=== PATIENT | female | born 1990 | race African-American/Black ===

== ENCOUNTER 2017-05-17 16:50 | Emergency (ER) | payer OTHER ==
[~2017-05-17] VITALS: Ht 154.9 cm; Wt 138.6 kg
[~2017-05-17 16:50] MED LIST: ALBU18HF INH; ALBU2.5V4 INHALATION; METO10TA3 PO; OMEP20CA11 PO; PREN-100 PO; PROM25TA14 PO
[2017-05-17 16:54] VITALS: BP 152/101; PULSE 81; RESP 16; O2SAT 98
[2017-05-17 19:50] LABS: BASOPHILS % (AUTO) 0.3 % (0-3); EOSINOPHILS % (AUTO) 1.9 % (0-5); MONOCYTES % (AUTO) 8.4 % (4-12); Mean Corpuscular Hemoglobin 30.6 pg (27.0-35.0); Mean Corpuscular Volume 94.7 fL (81-100); NEUTROPHILS % (AUTO) 51.3 % (40-74); Platelet Count 246 bil/L (150-400)
[2017-05-17 20:12] VITALS: BP 138/70; PULSE 84; RESP 18; O2SAT 100
[2017-05-17 20:34] LABS: APPEARANCE,URINE CLEAR (CLEAR,HAZY); COLOR,URINE YELLOW (YELLOW); OCCULT BLOOD,URINE NEGATIVE (NEGATIVE); PH,URINE 7.5 (5.0-8.0); UROBILINOGEN,URINE NORMAL (NORMAL)
--- NOTE | 2017-05-17 21:32 | ED.REPORT ---
HPI-General Illness Date of Service May 17, 2017 ED Provider: Tom Monson MD Patient is a 27 year old female with a history of bronchitis and asthma who presents to the ED due to an episode of confusion, where she woke up at work and was uncertain of how she got there. Patient reports having a headache and diarrhea but attributes this to her recent bronchitis and antibiotic treatment. She denies nausea, vomiting, one sided numbness, weakness, slurred speech, double vision, vision changes, cough or shortness of breath. The patient reports that she wasn't able to take her normal morning medications, (Ritalin for her ADHD, Prednisone, Celexa, Omeprazole, Tessalon pearls and an antibiotic for her current bronchitis), when normally scheduled, so she took them when she went home for lunch. She states that she does not remember going back to work and her boss told her that she was nodding off while he was trying to talk to her. The patient reports feeling like her "brain was in a fog" because she was unable to remember how to do simple work tasks that she normally performs. She has had reportedly had two episodes of seizure like activity in the past where she has fainted but has not had an episode for the past many years. Nursing Notes Stated Complaint: BLACKING OUT, CONFUSED, NOT ABLE TO FOCUS Chief Complaint: General Complaint Nursing Notes Reviewed: Yes Allergies: Coded Allergies: morphine (Verified Allergy, Mild, itchy, 05/17/17) iron (Verified Allergy, Unknown, 08/16/15) Scheduled Omeprazole (Omeprazole) 20 Mg Capsule. 20 MG PO DAILY Vits #90/Iron Fum/FA ( Formula Tablet) 1 Each Tablet 1 EACH PO DAILY Scheduled PRN Albuterol Neb Soln (Albuterol Neb Soln) 2.5 Mg/3 Ml Vial.neb 2.5 MG INHALATION Q4H PRN PRN For Shortness of Breath Albuterol Sulfate (Ventolin HFA Inhaler) 200 Puff/18 Gm Inhaler 2 PUFF INH Q4 PRN PRN For Wheezing Metoclopramide (Metoclopramide) 10 Mg Tablet 10 MG PO Q6H PRN PRN For Nausea Promethazine (Promethazine) 25 Mg Tablet 25 MG PO Q6H PRN PRN For Nausea General Time Seen by MD: 21:19 Chief Complaint Other (confusion) Hx Obtained From: Patient Arrived By: Walk-in Sudden in Onset?: Yes Onset Occurred: 5 - 8 hours ago Symptom Duration: 1 - 4 hours Severity: Current: No pain currently Associated with: Denies: Cough, Fever, Speech abnormal, Vomiting, Weakness Recent Healthcare: No recent hospitalization, Recent doctor visit Similar Sx Previous: Yes Past Medical History Past Medical History -induced hypertension Asthma GERD Past Surgical History Cholecystectomy x3 Smoking History Never Smoker Social History Alcohol Use: Denies alcohol use Ambulatory Status Independent Review of Systems Full Review of Systems Constitutional: Denies: Chills, Fever Respiratory: Denies: Non-productive cough, Shortness of breath GI: Reports: Diarrhea, Denies: Nausea, Vomiting Skin: Denies Itching, Denies Rash Neurologic: Reports: Confusion, Headache, Denies: Numbness, Slurred speech, Vision change, Weakness Complete sys rev & neg: except as marked. Physical Exam Vital Signs Vital Signs Date Time Temp Pulse Resp B/P Pulse Ox O2 Delivery O2 Flow Rate FiO2 05/17/17 23:56 36.9 81 18 142/74 99 Room Air 05/17/17 22:22 81 18 142/74 99 Room Air 05/17/17 20:12 84 18 138/70 100 Room Air 05/17/17 16:54 36.9 81 16 152/101 98 Room Air Initial VS: Reviewed General/Constitutional: Awake, Alert, No acute distress Appearance / Presentation: Positive: Obese, morbidly Head / Eyes: Atraumatic, Normocephalic, PERRL, EOMI Respiratory / Chest: Atraumatic, Breath sounds NL, Breath sounds = bilat, No respiratory distress Cardiovascular: Heart rate NL, Regular rhythm, Heart sounds NL Abdomen: Atraumatic, Soft, Non-tender Upper Extremities Upper Extremity / MS: Atraumatic, Inspection NL, Full range of motion Lower Extremity / Pelvis / MS: Atraumatic, Inspection NL, Full range of motion Skin: Atraumatic, Color NL, No rash, Warm, Dry Neurologic: Oriented X3, Speech NL, No motor deficits, No sensory deficits, CN II - XII intact, Reflexes equal bilat, Cerebellar NL Psychiatric: Affect NL, Mood NL Interpretation & Diagnostics Lab Results Interpretation Result Diagram: 05/17/17 1943 05/17/17 194 Test 05/17/17 18:26 05/17/17 19:43 05/17/17 19:47 05/17/17 20:20 Hold Urine Received (Received) White Blood Count 11.9th/mm3 (3.8-10.1) Red Blood Count 4.12mil/mm3 (3.90-5.20) Hemoglobin 12.6g/dL (12.0-15.6) Hematocrit 39.0% (35.0-46.0) Mean Corpuscular Volume 94.7fL (81-100) Mean Corpuscular Hemoglobin 30.6pg (27.0-35.0) Mean Corpuscular Hemoglobin Concent 32.3% (32.0-37.0) Red Cell Distribution Width 12.7% (12.3-15.4) Platelet Count 246bil/L (150-400) Neutrophils (%) (Auto) 51.3% (40-74) Lymphocytes (%) (Auto) 37.6% (14-46) Monocytes (%) (Auto) 8.4% (4-12) Eosinophils (%) (Auto) 1.9% (0-5) Basophils (%) (Auto) 0.3% (0-3) Sodium Level 138mEq/L (134-144) Potassium Level 4.3mEq/L (3.5-5.2) Chloride Level 101mEq/L (97-108) Carbon Dioxide Level 23mmol/L (18-29) Blood Urea Nitrogen 14mg/dL (6-20) Creatinine 0.60mg/dL (0.57-1.00) Estimat Glomerular Filtration Rate 152mL/min (>59) Glucose Level 101mg/dL (60-99) Calcium Level 9.1mg/dL (8.5-10.1) Total Bilirubin 0.2mg/dL (0.0-1.2) Aspartate Amino Transf (AST/SGOT) 56U/L (0-50) Alanine Aminotransferase (ALT/SGPT) 72U/L (0-32) Alkaline Phosphatase 76U/L (25-150) Total Protein 6.7g/dL (6.4-8.4) Albumin 3.7g/dL (3.4-5.0) Hold [place] Top Tube Received (Received) Urine Color Yellow (YELLOW) Urine Appearance Clear (CLEAR,HAZY) Urine pH 7.5 (5.0-8.0) Urine Specific [place] 1.015 (1.003-1.035) Urine Protein Negativemg/dL (NEG,TRACE) Urine Glucose (UA) Negativemg/dL (NEGATIVE) Urine Ketones Negativemg/dL (NEGATIVE) Urine Occult Blood Negative (NEGATIVE) Urine Nitrite Negative (NEGATIVE) Urine Bilirubin Negative (NEGATIVE) Urine Urobilinogen Normalmg/dL (NORMAL) Urine Leukocyte Esterase Negative (NEGATIVE) Urine RBC 0-2/hpf (0-2) Urine WBC 0-5/hpf (0-5) Urine Epithelial Cells Moderate/hpf (NONE-MOD) Urine Crystals None seen (NONE SEEN) Urine Bacteria Few/hpf (NONE-FEW) Urine Hyaline Casts None/lpf (NONE) Urine Granular Casts None seen (NONE SEEN) Urine Waxy Casts None seen (NONE SEEN) Urine Red Blood Cell Casts None seen (NONE SEEN) Urine White Blood Cell Casts None seen (NONE SEEN) Urine Mucus None seen (None Seen) Urine Trichomonas None seen (NONE SEEN) Urine Yeast None (NONE SEEN) Urinalysis Comment None Urine Culture Reflexed Not indicated ECG Interpretation Time: 19:37 Interpreted by: ED physician Normal ECG Interpretation: Normal rate (80), Normal sinus rhythm CT Head Interpretation IMPRESSION: No evidence of hemorrhage, mass, or acute infarct. at 2253 Study: Head CT no contrast Interpretation / Wet Read by: Interpret - Radiologist Re-Eval/Medical Decision Med Decision/Clinical Course 27-year-old female presents after a prolonged period of confusion and complete amnesia for events for at least several hours. Her mother arrived somewhat later and reports she has had lesser but similar episodes multiple times over the past ten years. She had an evaluation ten years ago for a more prolonged similar episode, with no result. My best estimation is that this was a seizure and a postictal event. This may be purely psychiatric fugue state or a drug-induced confusional state, but the episodic nature and somewhat repetitive nature strongly suggests seizure. She is referred to her PCP, as well as to neurology for MRI seizure protocol, EEG, and further evaluation. No indication for antiseizure medicines at this point, until her evaluation can be completed. Discussed all this with her and her mother at length. She is aware she is a non-driving status until cleared by neurology. Time of Eval: 22:21 Re-Evaluation/Progress Note: Discussed plans for a CT Time of Eval: 23:12 Re-Evaluation/Progress Note: Discussed CT results and plan for discharge. Patient understands and agrees to the plan. All questions were addressed. Counseled Regarding: Diagnosis, Lab results, Need for follow-up, When/why to return to ED Discharge & Departure Primary Impression: Seizure Additional Impressions: Post-ictal state Acute confusional state Disposition: Home Discharge Condition All VS Reviewed: Yes Condition: Stable Additional Instructions: Call your doctor tomorrow morning for follow-up. You will need an MRI seizure protocol with contrast scheduled at an open MRI facility. You will need an electroencephalogram, which can be scheduled through your doctor. You will need a referral to neurology, also to be arranged by your doctor. At this point, we do not have enough information to make a rational decision about your need or non-need for seizure medicine. For the moment, it is necessary that you do not drive a car until you are cleared. You will be putting your self and others at risk if you should have a loss of consciousness while driving. Return if you have any recurrent symptoms or any other new symptoms of concern Referrals: Dedrick Quinones DO (PCP) Abida Attestation Portions of this note were transcribed by Alma Pruitt. I, Dr. Monson personally performed the history, physical exam and medical decision-making; I reviewed and confirmed the accuracy of the information in the transcribed note. Signed by: Abida Winn, 05/17/17 and 2220 copies to: Dedrick Quinones Christopher W MD May 17, 2017 21:32 Marita Pruitt May 17, 2017 21:34
[2017-05-17 22:22] VITALS: BP 142/74; PULSE 81; RESP 18; O2SAT 99
[2017-05-17 23:56] VITALS: BP 142/74; PULSE 81; RESP 18; O2SAT 99
--- NOTE | 2017-05-18 10:32 | DRSVH ---
PROCEDURE: CT BRAIN WITHOUT CONTRAST ([id number]) INDICATIONS: SEIZURE TECHNIQUE: Noncontrast 4.5 mm thick angled axial sections acquired from the foramen magnum to the vertex, with c oronal reformats. COMPARISON: [facility], CT, BRAIN W/O CONTRAST, 05/25/2014, 12:49. FINDINGS: Image quality: Excellent. CSF spaces: Basal cisterns are patent. No extra-axial fluid collections. Ventricles are normal in size and shape. Brain: No midline shift. No intracranial masses or hemorrhage. Rubi-white matter interface is norm al. Skull and face: Calvarium and visualized facial bones are intact, without suspicious lesions. Sinuses: Visualized sinuses and mastoids are clear. IMPRESSION: 1. No acute intracranial process. Dictated by: Ariadna Gallardo M.D. on 05/18/2017 at 10:29 Approved by: Ariadna Gallardo M.D. on 05/18/2017 at 10:30
== END 2017-05-17 23:57 | disposition home or self-care (01) ==
LOC: SED 16:50
DX: R41.0 Disorientation, unspecified (principal); R56.9 Unspecified convulsions; R19.7 Diarrhea, unspecified; R51 Headache; J45.909 Unspecified asthma, uncomplicated; K21.9 Gastro-esophageal reflux disease without esophagitis; F90.9 Attention-deficit hyperactivity disorder, unspecified type; Z88.5 Allergy status to narcotic agent; Z88.8 Allergy status to other drugs, medicaments and biological substances